=== PATIENT | female | born 1965 | race Caucasian/White ===

== ENCOUNTER 2021-02-28 14:38 | Emergency (ER) | payer OTHER ==
--- OUTSIDE RECORDS SUMMARY | 2021-02-28 14:41 | XMS REPORT | Continuity of Care Document ---
:[address] [facility] t Address [address] [place] [address] Dr. Larose [address] [place] [id number] Care Team Providers Name Role Phone TYLER Attending Clinician Unavailable TYLER Admitting Clinician Unavailable Problems This patient has no known problems. Allergies, Adverse Reactions, Alerts This patient has no known allergies or adverse reactions. Medications This patient has no known medications. Procedures This patient has no known procedures. Encounters Start End Encounter Admission Attending Care Care Encounter Source Date/Time Date/Time Type Type Clinicians Facility Department ID 2018-01-18 2018-01-18 Outpatient C T[place] [facility] [id number] [address] 12:35:00 23:59:00 DAVID [facility] Results This patient has no known results.
[2021-02-28] MEDS ORDERED: predniSONE 20 MG TAB ONE (15:43)
--- NOTE | 2021-02-28 15:55 | RAD REPORT ---
EXAM DESCRIPTION: CT - Head Brain Wo Cont - 02/28/2021 3:37 pm CLINICAL HISTORY: WADE'S PALSY COMPARISON: No comparisons TECHNIQUE: Axial 5 mm thick images of the head were obtained without IV contrast. All CT scans are performed using dose optimization technique as appropriate and may include automated exposure control or mA/KV adjustment according to patient size. FINDINGS: No intracranial hemorrhage, mass, edema or shift of mid-line structures. No acute infarcti on changes seen. No cortical edema or sulcal effacement. Ventricles are normal. No atrophy changes ar e present. Mastoid air cells and visualized portions of the paranasal sinuses are clear. No acute bony findings. IMPRESSION: Negative non-contrast CT head examination for hemorrhage or acute intracranial finding. The patient has continued findings concerning for CVA, follow-up MR imaging could be performed.
--- NOTE | 2021-02-28 16:37 | ER ---
Nurse's Notes [facility] Name: Anthony Luong Age: 55 yrs Sex: Female : 1965 Arrival Date: 02/28/2021 Time: 14:41 Bed 4 Private MD: Diagnosis: Fonseca's palsy Presentation: 02/28 14:56 Chief complaint: Patient states: had the second shot of moderna vaccine on 01/31/21, em then started the propanolol on Saturday then noticed right sided facial droop and numbness, denies arm weakness or any other symptoms N/V, right sided facial drop noted in triage, pt ambulated into triage. Coronavirus screen: Client denies travel out of the [place] in the last 14 days. Ebola Screen: Patient negative for fever greater than or equal to 101.5 degrees Fahrenheit, and additional compatible Ebola Virus Disease symptoms Patient denies exposure to infectious person. Patient denies travel to an Ebola-affected area in the 21 days before illness onset. No symptoms or risks identified at this time. Initial Sepsis Screen: Does the patient meet any 2 criteria? No. Patient's initial sepsis screen is negative. Does the patient have a suspected source of infection? No. Patient's initial sepsis screen is negative. Risk Assessment: Do you want to hurt yourself or someone else? Patient reports no desire to harm self or others. Onset of symptoms was February 28, 2021. 14:56 Method Of Arrival: Ambulatory em 14:56 Acuity: PATTY 3 em Historical: - Allergies: 15:03 Codeine; em - Home Meds: 15:03 Propranolol Oral [Active]; em - PMHx: 15:03 Hypertension; Rheumatoid Arthritis; Hypothyroidism; em - PSHx: 15:03 ; Cholecystectomy; em - Immunization history:: Adult Immunizations up to date. - Social history:: Smoking status: Patient denies any tobacco usage or history of. Screenin:13 Abuse screen: Denies threats or abuse. Nutritional screening: No deficits noted. jd3 Tuberculosis screening: No symptoms or risk factors identified. VAN Screening: Arm Drift: Patient shows no arm weakness. Patient is VAN negative. 15:15 Fall Risk Ambulatory Aid- None/Bed Rest/Nurse Assist (0 pts). Gait- Normal/Bed jd3 Rest/Wheelchair (0 pts) Mental Status- Oriented to own ability (0 pts). Total Beckett Fall Scale indicates No Risk (0-24 pts). Assessment: 15:14 General: Appears in no apparent distress. comfortable, Behavior is calm, cooperative, jd3 appropriate for age. Pain: Denies pain. Neuro: Level of Consciousness is awake, alert, obeys commands, Oriented to person, place, time, situation, Facial droop on right, Denies weakness blurred vision difficulty swallowing, headache. Cardiovascular: Denies chest pain, Capillary refill < 3 seconds Patient's skin is warm and dry. Respiratory: Airway is patent Respiratory effort is even, unlabored, Respiratory pattern is regular, symmetrical, Denies cough, shortness of breath. GI: No signs and/or symptoms were reported involving the gastrointestinal system. : No signs and/or symptoms were reported regarding the genitourinary system. EENT: No signs and/or symptoms were reported regarding the EENT system. Derm: Skin is intact, Skin is dry, Skin is normal, Skin temperature is warm. Musculoskeletal: Circulation, motion, and sensation intact. Range of motion: intact in all extremities. 16:43 Reassessment: Patient appears in no apparent distress at this time. No changes from jd3 previously documented assessment. Patient and/or family updated on plan of care and expected duration. Pain level reassessed. Patient is alert, oriented x 3, equal unlabored respirations, skin warm/dry/pink. Vital Signs: 14:56 BP 151 / 93; Pulse 60; Resp 18; Temp 98.6(O); Pulse Ox 98% on R/A; Weight 79.38 kg; em Height 5 ft. 4 in. (162.56 cm); Pain 0/10; 16:44 BP 126 / 74; Pulse 52; Resp 17 S; Pulse Ox 98% on R/A; jd3 14:56 Body Mass Index 30.04 (79.38 kg, 162.56 cm) em ED Course: 14:41 Patient arrived in ED. mr 15:02 Triage completed. em 15:03 Arm band placed on. em 15:06 David Santillan PA is PHCP. jr8 15:06 Thomas Ma MD is Attending Physician. jr8 15:13 Tor Boone RN is Primary Nurse. jd3 15:16 Patient has correct armband on for positive identification. Bed in low position. Call jd3 light in reach. Side rails up X 1. Adult w/ patient. Pulse ox on. NIBP on. 15:37 CT Head Brain wo Cont In Process Unspecified. EDMS 16:36 Pio Segal MD is Referral Physician. jr8 16:44 No provider procedures requiring assistance completed. Patient did not have IV access jd3 during this emergency room visit. Administered Medications: 15:31 Drug: predniSONE 60 mg Route: PO; jd3 16:30 Follow up: Response: No adverse reaction jd3 Outcome: 16:36 Discharge ordered by . jr8 16:45 Discharged to home ambulatory, with family. jd3 16:45 Condition: stable 16:45 Discharge instructions given to patient, family, Instructed on discharge instructions, follow up and referral plans. medication usage, Demonstrated understanding of instructions, follow-up care, medications, Prescriptions given X 1. 16:46 Patient left the ED. jd3 Signatures: Dispatcher [employer] Malissa Almaguer Edgar, David Chacon RN, PA PA jrTor Frausto RN RN jmehdi
--- NOTE | 2021-02-28 16:37 | EDPHYS ---
Physician Documentation [facility] Name: Anthony Luong Age: 55 yrs Sex: Female : 1965 Arrival Date: 02/28/2021 Time: 14:41 Bed 4 Private MD: ED Physician Thomas Ma HPI: 02/28 15:22 This 55 yrs old Female presents to ER via Ambulatory with complaints of jr8 Numbness Of Face. 15:22 The patient's problem is reported as a facial droop, on right, paresthesias, in right jr8 side of face. Onset: The symptoms/episode began/occurred acutely, 3 day(s) ago. Duration: The episode is continuous. The symptoms are alleviated by nothing. The symptoms are aggravated by nothing. Associated signs and symptoms: The patient has no apparent associated signs or symptoms. Severity of symptoms: At their worst the symptoms were mild in the emergency department the symptoms are unchanged. Patient's baseline: Neuro: alert and fully oriented, Motor: no deficits, Ambulation: walks without assistance, Speech: normal. The patient has not experienced similar symptoms in the past. The patient has not recently seen a physician. Historical: - Allergies: 15:03 Codeine; em - Home Meds: 15:03 Propranolol Oral [Active]; em - PMHx: 15:03 Hypertension; Rheumatoid Arthritis; Hypothyroidism; em - PSHx: 15:03 ; Cholecystectomy; em - Immunization history:: Adult Immunizations up to date. - Social history:: Smoking status: Patient denies any tobacco usage or history of. ROS: 15:22 Eyes: Negative for injury, pain, redness, and discharge, ENT: Negative for injury, jr8 pain, and discharge, Neck: Negative for injury, pain, and swelling, Cardiovascular: Negative for chest pain, palpitations, and edema, Respiratory: Negative for shortness of breath, cough, wheezing, and pleuritic chest pain, Abdomen/GI: Negative for abdominal pain, nausea, vomiting, diarrhea, and constipation, Back: Negative for injury and pain, MS/Extremity: Negative for injury and deformity, Skin: Negative for injury, rash, and discoloration. 15:22 Neuro: Positive for numbness, weakness. Exam: 15:22 Radiologist reports: No acute findings noted on head CT jr8 15:22 Constitutional: This is a well developed, well nourished patient who is awake, alert, and in no acute distress. Neck: Trachea midline, no thyromegaly or masses palpated, and no cervical lymphadenopathy. Supple, full range of motion without nuchal rigidity, or vertebral point tenderness. No Meningismus. Cardiovascular: Regular rate and rhythm with a normal S1 and S2. No gallops, murmurs, or rubs. Normal PMI, no JVD. No pulse deficits. Respiratory: Lungs have equal breath sounds bilaterally, clear to auscultation and percussion. No rales, rhonchi or wheezes noted. No increased work of breathing, no retractions or nasal flaring. Abdomen/GI: Soft, non-tender, with normal bowel sounds. No distension or tympany. No guarding or rebound. No evidence of tenderness throughout. Skin: Warm, dry with normal turgor. Normal color with no rashes, no lesions, and no evidence of cellulitis. MS/ Extremity: Pulses equal, no cyanosis. Neurovascular intact. Full, normal range of motion. 15:22 Neuro: Orientation: to person, place, time \T\ situation. Mentation: is normal, Memory: is normal, Cranial nerves: CN I not tested, normal except CN7 palsy present, visual abad are intact. extraocular movements are intact, facial droop noted on right, with forehead involved. decreased ocular muscle tone in the right eye, Nystagmus is absent. Speech is clear and appropriate. Tongue strength is normal, Cerebellar function: is grossly normal, Motor: is normal, Sensation: no obvious gross deficits, seizure activity, is not displayed by the patient, Abnormal movements: there are no abnormal movements. Vital Signs: 14:56 BP 151 / 93; Pulse 60; Resp 18; Temp 98.6(O); Pulse Ox 98% on R/A; Weight 79.38 kg; em Height 5 ft. 4 in. (162.56 cm); Pain 0/10; 16:44 BP 126 / 74; Pulse 52; Resp 17 S; Pulse Ox 98% on R/A; jd3 14:56 Body Mass Index 30.04 (79.38 kg, 162.56 cm) em MDM: 15:06 Patient medically screened. jr8 15:22 Data reviewed: vital signs, nurses notes, radiologic studies, CT scan. Data jr8 interpreted: Pulse oximetry: on room air is 98 %. Interpretation: normal. Counseling: I had a detailed discussion with the patient and/or guardian regarding: the historical points, exam findings, and any diagnostic results supporting the discharge/admit diagnosis, radiology results, the need for outpatient follow up, a neurologist, to return to the emergency department if symptoms worsen or persist or if there are any questions or concerns that arise at home. ED course: Detailed discussion with patient and about [place] palsy and possible causes. What to do about it and need for steroids along with f/u with neurology to ensure symptoms resolution. Family and patient good with plan. 02/28 15:22 Order name: CT Head Brain wo Cont; Complete Time: 16:36 jr8 Administered Medications: 15:31 Drug: predniSONE 60 mg Route: PO; jd3 16:30 Follow up: Response: No adverse reaction jd3 Disposition: 02/28/21 16:36 Discharged to Home. Impression: Fonseca's palsy. - Condition is Stable. - Discharge Instructions: Fonseca Palsy, Adult. - Prescriptions for Prednisone 20 mg Oral Tablet - take 3 tablets by ORAL route once daily for 6 days; 18 tablet. - Medication Reconciliation Form, Thank You Letter, Antibiotic Education, Prescription Opioid Use form. - Follow up: Pio Segal MD; When: 2 - 3 days; Reason: Recheck today's complaints, Continuance of care, Re-evaluation by your physician. - Problem is new. - Symptoms are unchanged. Addendum: 03/02/2021 06:34 Co-signature as Attending Physician, Thomas Ma MD I agree with the assessment and t w4 plan of care. Signatures: Dispatcher [employer] Raciel Sandy RN RN David Lane PA PA jr8 Tor Boone RN RN jd3 Wadley, Terrence, MD MD tw4 Corrections: (The following items were deleted from the chart) 02/28 16:46 16:36 02/28/2021 16:36 Discharged to Home. Impression: Fonseca's palsy. Condition is jd3 Stable. Forms are Medication Reconciliation Form, Thank You Letter, Antibiotic Education, Prescription Opioid Use. Follow up: Pio Segal; When: 2 - 3 days; Reason: Recheck today's complaints, Continuance of care, Re-evaluation by your physician. Problem is new. Symptoms are unchanged. jr8
[2021-02-28 16:51] VITALS: TEMP 98.6; O2SAT 98
[2021-02-28 16:52] VITALS: BP 126/74
== END 2021-02-28 16:46 | disposition home or self-care (01) ==
LOC: ER 14:38
DX: G51.0 Bell's palsy (principal); I10 Essential (primary) hypertension; M06.9 Rheumatoid arthritis, unspecified; E03.9 Hypothyroidism, unspecified
CPT/HCPCS: 70450; 99284; J7512

== ENCOUNTER 2021-12-24 13:55 | Emergency (ER) | payer OTHER ==
--- OUTSIDE RECORDS SUMMARY | 2021-12-24 13:58 | XMS REPORT | Continuity of Care Document ---
:1965 Author Organization [facility] t Address [address] Larose [address] [place] [id number] Care Team Providers Name Role Phone BRANDEE SALVADOR Attending Clinician Unavailable TYLER Attending Clinician Unavailable TYLER Admitting Clinician Unavailable Problems This patient has no known problems. Allergies, Adverse Reactions, Alerts This patient has no known allergies or adverse reactions. Medications This patient has no known medications. Procedures This patient has no known procedures. Encounters Start End Encounter Admission Attending Care Care Encounter Source Date/Time Date/Time Type Type Clinicians Facility Department ID 2021-11-29 2021-11-29 Outpatient MARIA TERESA SALVADOR [facility] [place] 2025 14:20:00 23:59:[address] [facility] 2018-01-18 2018-01-18 Outpatient C TYL[place] [facility] [place] [id number] [address] [facility] 12:35:00 23:59:00 [facility] Results This patient has no known results.
[2021-12-24 15:41] LABS: Absolute Lymphocytes (CBC) 2.5 K/uL (0.7-4.9); Hematocrit 41.1 % (36.0-45.0); Lymphocytes % 23.3 % (15.3-44.8); MPV 8.8 fL (7.6-11.3); RBC Red Blood Cell Count 5.02 M/uL (3.86-4.86)
[2021-12-24 15:50] LABS: Protime INR 1.02
[2021-12-24 16:09] LABS: Albumin 3.7 g/dL (3.4-5.0); BUN Blood Urea Nitrogen 14 mg/dL (7-18); Bicarbonate 25 mmol/L (21-32); Glucose Level 87 mg/dL (74-106); Potassium 3.9 mmol/L (3.5-5.1); Sodium Level 139 mmol/L (136-145)
--- NOTE | 2021-12-24 16:09 | RAD REPORT ---
EXAM DESCRIPTION: CT - Head Brain Wo Cont - 12/24/2021 3:44 pm CLINICAL HISTORY: Headache COMPARISON: 2020 TECHNIQUE: Computed axial tomography of the head was obtained. IV contrast was not requested. All CT scans are performed using dose optimization technique as appropriate and may include automated exposure control or mA/KV adjustment according to patient size. FINDINGS: An intracranial bleed is not seen . The ventricles are normal in caliber. No extra-axial fluid collection is noted. Fluid within the sinuses/ mastoids is not seen. IMPRESSION: No acute intracranial abnormality is seen. If patient's symptoms persist MRI of the bra in would be recommended.
[2021-12-24 16:15] LABS: ALT/SGPT 65 U/L (12-78); AST/SGOT 35 U/L (15-37); Alkaline Phosphatase 108 U/L (45-117); Bilirubin Direct < 0.1 mg/dL (0-0.2); Bilirubin Total 0.3 mg/dL (0.2-1.0); Protein, Total 7.4 g/dL (6.4-8.2)
[2021-12-24 16:16] LABS: NT PRO-BNP 137 pg/mL (<125)
[2021-12-24 16:33] LABS: SARS-COV-2 RT PCR NEGATIVE (NEGATIVE)
--- NOTE | 2021-12-24 17:05 | RAD REPORT ---
EXAM DESCRIPTION: Jose Single View12/24/2021 4:59 pm CLINICAL HISTORY: Chest pain COMPARISON: 2013 FINDINGS: The lungs appear clear of acute infiltrate. The heart is normal size IMPRESSION: No acute abnormalities displayed
--- NOTE | 2021-12-24 17:11 | ER ---
Nurse's Notes [facility] Name: Anthony Luong Age: 56 yrs Sex: Female : 1965 Arrival Date: 12/24/2021 Time: 13:56 Bed 28 Private MD: Diagnosis: Headache;Chest pain, unspecified;Essential (primary) hypertension Presentation: 12/24 14:11 Chief complaint: Patient states: Blood pressure was elevated at home and was having a ww headaches, nausea and pressure. Coronavirus screen: Vaccine status: Patient reports receiving the 2nd dose of the covid vaccine. Client denies travel out of the [place] in the last 14 days. Ebola Screen: Patient denies travel to an Ebola-affected area in the 21 days before illness onset. Initial Sepsis Screen: Does the patient meet any 2 criteria? No. Patient's initial sepsis screen is negative. Does the patient have a suspected source of infection? No. Patient's initial sepsis screen is negative. Risk Assessment: Do you want to hurt yourself or someone else? Patient reports no desire to harm self or others. Onset of symptoms was December 24, 2021. 14:11 Method Of Arrival: Ambulatory ww 14:11 Acuity: PATTY 3 ww Triage Assessment: 14:15 General: Appears in no apparent distress. Behavior is calm, cooperative, appropriate ww for age. Pain: Complains of pain in face and scalp. Neuro: Level of Consciousness is awake, alert, obeys commands, Oriented to person, place, time, situation, Moves all extremities. Speech is normal. Cardiovascular: Capillary refill < 3 seconds Patient's skin is warm and dry. Respiratory: Airway is patent Respiratory effort is even, unlabored, Respiratory pattern is regular, symmetrical. GI: No signs and/or symptoms were reported involving the gastrointestinal system. : No signs and/or symptoms were reported regarding the genitourinary system. Derm: Skin is intact. Historical: - Allergies: 14:15 Codeine; ww - Home Meds: 14:15 metoprolol tartrate 25 mg Oral tab 1 tab 2 times per day [Active]; levothyroxine 137 ww mcg tab 1 tab once daily [Active]; sertraline 25 mg oral tab 1 tab once daily [Active]; Vitamin D Oral [Active]; Celebrex Oral [Active]; - PMHx: 14:15 Hypertension; Hypothyroidism; Rheumatoid Arthritis; thyroid cancer; ww - PSHx: 14:15 Thyroidectomy; carpal tunnel release; Cholecystectomy; ww - Immunization history:: Adult Immunizations up to date. - Social history:: Smoking status: Patient reports the use of cigarette tobacco products, denies chronic smoking, but will smoke occasionally. Screenin:19 Abuse screen: Denies threats or abuse. Denies injuries from another. Nutritional ww screening: No deficits noted. Tuberculosis screening: No symptoms or risk factors identified. Fall Risk None identified. Assessment: 14:47 General: Appears in no apparent distress. comfortable, Behavior is calm, cooperative. lr4 Pain: Complains of pain in chest Pain currently is 4 out of 10 on a pain scale. Neuro: No deficits noted. Neuro: Reports headache in entire since saturday Denies weakness dizziness, paresthesias numbness photophobia diplopia. Cardiovascular: No deficits noted. Cardiovascular: Reports chest pain, since Saturday but off and on x 1 year, pt states cp is nearly gone but more concerned about FERRARO. Respiratory: No deficits noted. 17:14 General: Pt departed ed ambulatory with all personal effects. ww Vital Signs: 14:11 BP 153 / 82; Pulse 57; Resp 18; Temp 98.2; Pulse Ox 99% on R/A; Weight 81.65 kg; Height ww 5 ft. 3 in. (160.02 cm); Pain 3/10; 16:06 BP 135 / 83; Pulse 54; Resp 18; Pulse Ox 99% on R/A; ss7 17:12 BP 122 / 95; Pulse 55; Resp 18; Pulse Ox 100% ; ww 14:11 Body Mass Index 31.89 (81.65 kg, 160.02 cm) ww ED Course: 13:56 Patient arrived in ED. as 14:15 Triage completed. ww 14:15 Arm band placed on right wrist. ww 14:31 Patient placed in an exam room, on a stretcher. ll1 14:34 Jayro Mcnamara NP is PHCP. pm1 14:34 Lex Carmona MD is Attending Physician. pm1 14:53 Patient has correct armband on for positive identification. Call light in reach. Side lr4 rails up X 1. Adult w/ patient. bandage maker on. Pulse ox on. NIBP on. 14:53 No provider procedures requiring assistance completed. lr4 15:37 TSH Sent. ss7 15:37 COVID-19/FLU A+B (Document "Date of Onset" if Symptomatic) Sent. ss7 15:44 CT Head Brain wo Cont In Process Unspecified. EDMS 16:59 XRAY Chest (1 view) In Process Unspecified. EDMS 17:12 Lou Tellez, RN is Primary Nurse. ww 17:14 Patient did not have IV access during this emergency room visit. ww Administered Medications: No medications were administered Outcome: 14:53 Condition: good lr4 17:11 Discharge ordered by MD. pm1 17:14 Discharged to home ambulatory. ww 17:14 Discharge instructions given to patient. 17:27 Patient left the ED. ww Signatures: Dispatcher [employer] Fior Carlton Patrick, [employer] pm1 Cristiane Tavarez, RN RN ll1 Lou Tellez, RN RN Maricarmen Martini RN RN ss7 Kamila Villaseñor RN RN lr4
--- NOTE | 2021-12-24 17:11 | EDPHYS ---
Physician Documentation [facility] Name: Anthony Luong Age: 56 yrs Sex: Female : 1965 Arrival Date: 12/24/2021 Time: 13:56 Bed 28 Private MD: ED Physician Lex Carmona HPI: 12/24 15:17 This 56 yrs old Female presents to ER via Ambulatory with complaints of High Blood pm1 Pressure. 15:17 The patient has elevated blood pressure and discovered this at home, with a home pm1 device. Onset: The symptoms/episode began/occurred 3 day(s) ago. Modifying factors: The symptoms are aggravated by nothing, The symptoms are alleviated by nothing. Associated signs and symptoms: Pertinent positives: chest pain, headache, Pertinent negatives: nausea, vomiting, shortness of breath. Severity of symptoms: in the emergency department the blood pressure is improved. The patient has not recently seen a physician. Patient report noncompliance with multiple medications. Historical: - Allergies: 14:15 Codeine; ww - Home Meds: 14:15 metoprolol tartrate 25 mg Oral tab 1 tab 2 times per day [Active]; levothyroxine 137 ww mcg tab 1 tab once daily [Active]; sertraline 25 mg oral tab 1 tab once daily [Active]; Vitamin D Oral [Active]; Celebrex Oral [Active]; - PMHx: 14:15 Hypertension; Hypothyroidism; Rheumatoid Arthritis; thyroid cancer; ww - PSHx: 14:15 Thyroidectomy; carpal tunnel release; Cholecystectomy; ww - Immunization history:: Adult Immunizations up to date. - Social history:: Smoking status: Patient reports the use of cigarette tobacco products, denies chronic smoking, but will smoke occasionally. ROS: 15:17 Constitutional: Negative for fever, chills, and weight loss. pm1 15:17 Respiratory: Negative for shortness of breath, cough, wheezing, and pleuritic chest pain, Abdomen/GI: Negative for abdominal pain, nausea, vomiting, diarrhea, and constipation, Back: Negative for injury and pain, MS/Extremity: Negative for injury and deformity, Skin: Negative for injury, rash, and discoloration. 15:17 Cardiovascular: Positive for chest pain, Negative for edema, palpitations. 15:17 Neuro: Positive for headache, Negative for numbness, tingling, weakness. 15:17 All other systems are negative. Exam: 15:17 Constitutional: This is a well developed, well nourished patient who is awake, alert, pm1 and in no acute distress. Head/Face: Normocephalic, atraumatic. 15:17 Back: No spinal tenderness. No costovertebral tenderness. Full range of motion. Skin: Warm, dry with normal turgor. Normal color with no rashes, no lesions, and no evidence of cellulitis. MS/ Extremity: Pulses equal, no cyanosis. Neurovascular intact. Full, normal range of motion. 15:17 Eyes: Exam is negative for acute changes, Periorbital structures: no acute changes, Pupils: no acute changes, Extraocular movements: no acute changes. 15:17 ENT: Exam is negative for acute changes, Mouth: no acute changes, Lips: normal, moist, Oral mucosa: normal, pink and intact, moist. 15:17 Cardiovascular: Exam negative for acute changes, Rate: normal, Rhythm: regular, Pulses: no pulse deficits are appreciated, Heart sounds: normal. 15:17 Respiratory: Exam negative for acute changes, respiratory distress, shortness of breath, Breath sounds: are clear throughout. 15:17 Abdomen/GI: Exam negative for acute changes, Inspection: abdomen appears normal, Palpation: abdomen is soft and non-tender, in all quadrants. 15:17 Neuro: Exam negative for acute changes, Orientation: is normal, Mentation: is normal, Motor: is normal, moves all fours. Vital Signs: 14:11 BP 153 / 82; Pulse 57; Resp 18; Temp 98.2; Pulse Ox 99% on R/A; Weight 81.65 kg; Height ww 5 ft. 3 in. (160.02 cm); Pain 3/10; 16:06 BP 135 / 83; Pulse 54; Resp 18; Pulse Ox 99% on R/A; ss7 17:12 BP 122 / 95; Pulse 55; Resp 18; Pulse Ox 100% ; ww 14:11 Body Mass Index 31.89 (81.65 kg, 160.02 cm) MDM: 15:24 Patient medically screened. pm1 17:08 ED course: Patient offered pain medications for her headache. She refused, prefers to pm1 take Tylenol at home. Pending TSH but patient and her would like to go home now. 17:08 Data reviewed: vital signs. Data interpreted: Pulse oximetry: on room air is 99 %. pm1 Interpretation: normal. 17:08 Counseling: I had a detailed discussion with the patient and/or guardian regarding: the pm1 historical points, exam findings, and any diagnostic results supporting the discharge/admit diagnosis, lab results, radiology results, the need for outpatient follow up, to return to the emergency department if symptoms worsen or persist or if there are any questions or concerns that arise at home, follow up with PCP regarding medication compliance. 12/24 15:17 Order name: Basic Metabolic Panel; Complete Time: 16:27 pm12/24 15:17 Order name: CBC with Diff; Complete Time: 16:13 pm12/24 15:17 Order name: LFT's; Complete Time: 16:27 pm12/24 15:17 Order name: Magnesium; Complete Time: 16:27 pm12/24 15:17 Order name: NT PRO-BNP; Complete Time: 16:27 pm12/24 15:17 Order name: PT-INR; Complete Time: 16:13 pm12/24 15:17 Order name: Troponin HS; Complete Time: 16:27 pm12/24 15:17 Order name: XRAY Chest (1 view); Complete Time: 17:11 pm12/24 15:17 Order name: EKG; Complete Time: 15:17 pm12/24 15:17 Order name: Cardiac monitoring; Complete Time: 15:37 pm12/24 15:17 Order name: EKG - Nurse/Tech; Complete Time: 15:37 pm12/24 15:27 Order name: TSH; Complete Time: 17:11 pm12/24 15:27 Order name: CT Head Brain wo Cont; Complete Time: 16:13 pm12/24 15:27 Order name: COVID-19/FLU A+B (Document "Date of Onset" if Symptomatic); Complete Time: pm1 16:49 12/24 15:17 Order name: IV Saline Lock; Complete Time: 15:37 pm12/24 15:17 Order name: Labs collected and sent; Complete Time: 15:37 pm12/24 15:17 Order name: O2 Per Protocol; Complete Time: 15:38 pm12/24 15:17 Order name: O2 Sat Monitoring; Complete Time: 15:38 pm1 Administered Medications: No medications were administered Disposition Summary: 12/24/21 17:11 Discharge Ordered Location: Home pm1 Problem: new pm1 Symptoms: have improved pm1 Condition: Stable pm1 Diagnosis - Headache pm1 - Chest pain, unspecified pm1 - Essential (primary) hypertension pm1 Followup: pm1 - With: Emergency Department - When: As needed - Reason: Worsening of condition Followup: pm1 - With: Private Physician - When: 2 - 3 days - Reason: Recheck today's complaints, Continuance of care, Re-evaluation by your physician Discharge Instructions: - Discharge Summary Sheet pm1 - Nonspecific Chest Pain, Adult pm1 - General Headache Without Cause pm1 - Hypertension, Adult pm1 - How to Take Your Blood Pressure, [id number] pm1 - DASH Eating Plan pm1 - Managing Your Hypertension pm1 Forms: - Medication Reconciliation Form pm1 - Thank You Letter pm1 - Antibiotic Education pm1 - Prescription Opioid Use pm1 Addendum: 12/27/2021 23:12 Co-signature as Attending Physician, Lex Carmona MD I agree with the assessment and r n plan of care. Attestation: The patient's history, exam findings, diagnostics, and a summary of any interventions or procedures was reviewed in detail with Jayro Mcnamara NP. Signatures: Dispatcher [employer] Lex Gonzalez MD MD rn Marinas, Patrick, NP TIMBER MANAGEMENT SPECIALIST pm1 Lou Tellez RN RN ww
[2021-12-24 17:41] VITALS: TEMP 98.2
[2021-12-24 17:44] VITALS: BP 122/95; O2SAT 100
== END 2021-12-24 17:27 | disposition home or self-care (01) ==
LOC: ER 13:55
DX: R51.9 Headache, unspecified (principal); R07.9 Chest pain, unspecified; I10 Essential (primary) hypertension; E03.9 Hypothyroidism, unspecified; F17.210 Nicotine dependence, cigarettes, uncomplicated; Z88.5 Allergy status to narcotic agent; Z20.822 Contact with and (suspected) exposure to COVID-19
CPT/HCPCS: 93005; 85025; 80048; 36415; 83735; 85610; 80076; 84443; 84484; 83880; 0240U; 70450; 71045; 99284